=== PATIENT | female | born 1945 | race Caucasian/White ===

== ENCOUNTER 2019-10-13 19:51 | Emergency (ER) | payer MEDICARE, BC ==
--- NOTE | 2019-10-13 21:17 | EDM.PDOC ---
ED HPI GENERAL MEDICAL PROBLEM - General Chief Complaint: Gastrointestinal Problem Stated Complaint: DIARRHEA VOMITING COLD Time Seen by Provider: 10/13/19 21:09 - History of Present Illness INITIAL COMMENTS - FREE TEXT/NARRATIVE: 74-year-old female presents the emergency room with abdominal pain. This started earlier today and is progressively gotten worse the patient takes omeprazole daily and she missed a dose today. The patient is also on chemotherapy for breast cancer she is a little over a week after her first cycle of what is scheduled to be 4 rounds of chemotherapy. She has had some vomiting and some diarrhea. She is not aware of any fevers or chills. And to this point is not aware of any side effects from the chemotherapy Upper Abdomen Pain Score (Numeric/FACES): 10 - Related Data Allergies Allergy/AdvReac Type Severity Reaction Status Date / Time No Known Allergies Allergy Verified 10/13/19 20:07 Home Meds: Home Meds Calcium Carbonate/Vitamin D3 [Calcium 600 + Vit D 200] 1 each PO DAILY 10/13/19 [History] Glucosam/Chondr/Collagn/Hyalur [Glucosamine & Chondroitin Cap] 1 each PO DAILY 10/13/19 [History] Lisinopril [Zestril] 20 mg PO DAILY 10/13/19 [History] [place]-3 Fatty Acids [Maxepa] 2,000 mg PO DAILY 10/13/19 [History] Omeprazole 20 mg PO DAILY 10/13/19 [History] atorvaSTATin [Lipitor] 20 mg PO DAILY 10/13/19 [History] Past Medical History HEENT History: Reports: Cataract, Impaired Vision Cardiovascular History: Reports: High Cholesterol, Hypertension Respiratory History: Reports: None Gastrointestinal History: Reports: G[employer]ICIAN History: Reports: Musculoskeletal History: Reports: None Neurological History: Reports: None Psychiatric History: Reports: None Endocrine/Metabolic History: Reports: Other (See Below) Other Endocrine/Metabolic History: Pre-Diabetic Hematologic History: Reports: None Immunologic History: Reports: None Oncologic (Cancer) History: Reports: Breast Dermatologic History: Reports: None - Infectious Disease History Infectious Disease History: Reports: None - Past Surgical History HEENT Surgical History: Reports: Cataract Surgery GI Surgical History: Reports: Cholecystectomy Female Surgical History: Reports: Breast Biopsy Oncologic Surgical History: Reports: Biopsy of Breast, Lumpectomy, Other (See Below) Other Oncologic Surgeries/Procedures: No BP/Lab draws right arm. Power Port on left side confirmed by ID card. Social & Family History - Tobacco Use Smoking Status *Q: Never Smoker - Caffeine Use Caffeine Use: Reports: Coffee - Recreational Drug Use Recreational Drug Use: No ED ROS GENERAL - Review of Systems Review Of Systems: See Below Constitutional: Reports: No Symptoms. Denies: Fever, Chills HEENT: Reports: No Symptoms Respiratory: Reports: No Symptoms Cardiovascular: Reports: No Symptoms Endocrine: Reports: No Symptoms GI/Abdominal: Reports: Abdominal Pain. Denies: Black Stool, Bloody Stool, Constipation, Diarrhea Musculoskeletal: Reports: No Symptoms Skin: Reports: No Symptoms Psychiatric: Reports: No Symptoms Hematologic/Lymphatic: Reports: No Symptoms Immunologic: Reports: No Symptoms ED EXAM, GI/ABD - Physical Exam Exam: See Below Exam Limited By: No Limitations General Appearance: Alert, No Apparent Distress Head: Atraumatic, Normocephalic Neck: Normal Inspection, Supple, Non-Tender, Full Range of Motion. No: Lymphadenopathy (L), Lymphadenopathy (R) Respiratory/Chest: No Respiratory Distress, Lungs Clear, Normal Breath Sounds Cardiovascular: Regular Rate, Rhythm, No Edema, No Murmur GI/Abdominal Exam: Normal Bowel Sounds, Soft, Tender (Epigastric discomfort) Back Exam: Normal Inspection. No: CVA Tenderness (L), CVA Tenderness (R) Neurological: Alert, Oriented, Normal Cognition Skin Exam: Warm, Dry, Intact Lymphatic: No Adenopathy Course - Vital Signs Last Recorded V/S: Last Vital Signs Temp 37.1 C 10/13/19 20:03 Pulse 111 H 10/13/19 20:03 Resp 16 10/13/19 20:03 BP 127/74 10/13/19 20:03 Pulse Ox 96 10/13/19 20:03 - Orders/Labs/Meds Orders: Active Orders 24 hr Category Date Time Status Abdomen Pelvis w Cont [CT] Stat Exams 10/14/19 00:15 Taken CULTURE BLOOD [BC] Stat Lab 10/14/19 00:22 Received CULTURE BLOOD [BC] Stat Lab 10/14/19 00:32 Received CULTURE URINE [RM] Stat Lab 10/14/19 01:58 Received Lactated Ringers [Ringers, Lactated] 1,000 ml Med 10/14/19 01:30 Active IV ASDIRECTED Blood Culture x2 Reflex Set [OM.PC] Stat Oth 10/14/19 00:02 Ordered Medication Orders Lactated Ringer's (Ringers, Lactated) 1,000 mls @ 150 mls/hr IV ASDIRECTED FRANCISCO Last Admin: 10/14/19 02:03 Dose: 150 mls/hr Labs: Laboratory Tests 10/13/19 10/13/19 10/14/19 Range/Units 21:45 21:45 00:22 WBC 0.81 L* (3.98-10.04) K/mm3 RBC 4.88 (3.98-5.22) M/mm3 Hgb 14.1 (11.2-15.7) gm/dl Hct 40.8 (34.1-44.9) % MCV 83.6 (79.4-94.8) fl MCH 28.9 (25.6-32.2) pg MCHC 34.6 (32.2-35.5) g/dl RDW Std Deviation 37.5 (36.4-46.3) fL Plt Count 202 (182-369) K/mm3 MPV 10.4 (9.4-12.3) fl Neut % (Auto) Cancelled Lymph % (Auto) Cancelled [place] % (Auto) Cancelled Eos % (Auto) Cancelled Baso % (Auto) Cancelled Neut # (Auto) Cancelled Lymph # (Auto) Cancelled [place] # (Auto) Cancelled Eos # (Auto) Cancelled Baso # (Auto) Cancelled Neutrophils % (Manual) 26 L (40-60) % Band Neutrophils % 0 (0-10) % Lymphocytes % (Manual) 44 H (20-40) % Atypical Lymphs % 0 % Monocytes % (Manual) 30 H (2-10) % Eosinophils % (Manual) 0 L (0.7-5.8) % Basophils % (Manual) 0 L (0.1-1.2) Manual Slide Review Cancelled Toxic Granulation Occasional Platelet Estimate Adequate RBC Morph Comment Normal Sodium 138 (136-145) mEq/L Potassium 3.6 (3.5-5.1) mEq/L Chloride 101 (98-107) mEq/L Carbon Dioxide 25 (21-32) mEq/L Anion Gap 15.6 H (5-15) BUN 16 (7-18) mg/dL Creatinine 1.3 H (0.55-1.02) mg/dL Est Cr Clr Drug Dosing 33.78 mL/min Estimated GFR (MDRD) 40 (>60) mL/min BUN/Creatinine Ratio 12.3 L (14-18) Glucose 237 H (83-115) mg/dL Lactic Acid 2.9 H* (0.4-2.0) mmol/L Calcium 10.1 (8.5-10.1) mg/dL Total Bilirubin 3.7 H (0.2-1.0) mg/dL Direct Bilirubin (0.0-0.2) mg/dl AST 668 H (15-37) U/L ALT 842 H (14-59) U/L Alkaline Phosphatase 326 H (46-116) U/L Total Protein 7.2 (6.4-8.2) g/dl Albumin 3.2 L (3.4-5.0) g/dl Globulin 4.0 gm/dL Albumin/Globulin Ratio 0.8 L (1-2) Lipase 88332 H (73-393) U/L Urine Color (Yellow) Urine Appearance (Clear) Urine pH (5.0-8.0) Ur Specific [place] (1.005-1.030) Urine Protein (Negative) Urine Glucose (UA) (Negative) Urine Ketones (Negative) Urine Occult Blood (Negative) Urine Nitrite (Negative) Urine Bilirubin (Negative) Urine Urobilinogen (0.2-1.0) Ur Leukocyte Esterase (Negative) Urine RBC (0-5) /hpf Urine WBC (0-5) /hpf Ur Squamous Epith Cells (0-5) /hpf Urine Bacteria (FEW) /hpf Urine Mucus (FEW) /hpf 10/14/19 10/14/19 Range/Units 00:32 00:44 WBC (3.98-10.04) K/mm3 RBC (3.98-5.22) M/mm3 Hgb (11.2-15.7) gm/dl Hct (34.1-44.9) % MCV (79.4-94.8) fl MCH (25.6-32.2) pg MCHC (32.2-35.5) g/dl RDW Std Deviation (36.4-46.3) fL Plt Count (182-369) K/mm3 MPV (9.4-12.3) fl Neut % (Auto) Lymph % (Auto) [place] % (Auto) Eos % (Auto) Baso % (Auto) Neut # (Auto) Lymph # (Auto) [place] # (Auto) Eos # (Auto) Baso # (Auto) Neutrophils % (Manual) (40-60) % Band Neutrophils % (0-10) % Lymphocytes % (Manual) (20-40) % Atypical Lymphs % % Monocytes % (Manual) (2-10) % Eosinophils % (Manual) (0.7-5.8) % Basophils % (Manual) (0.1-1.2) Manual Slide Review Toxic Granulation Platelet Estimate RBC Morph Comment Sodium (136-145) mEq/L Potassium (3.5-5.1) mEq/L Chloride (98-107) mEq/L Carbon Dioxide (21-32) mEq/L Anion Gap (5-15) BUN (7-18) mg/dL Creatinine (0.55-1.02) mg/dL Est Cr Clr Drug Dosing mL/min Estimated GFR (MDRD) (>60) mL/min BUN/Creatinine Ratio (14-18) Glucose (83-115) mg/dL Lactic Acid (0.4-2.0) mmol/L Calcium (8.5-10.1) mg/dL Total Bilirubin (0.2-1.0) mg/dL Direct Bilirubin 2.90 H (0.0-0.2) mg/dl AST (15-37) U/L ALT (14-59) U/L Alkaline Phosphatase (46-116) U/L Total Protein (6.4-8.2) g/dl Albumin (3.4-5.0) g/dl Globulin gm/dL Albumin/Globulin Ratio (1-2) Lipase (73-393) U/L Urine Color Yellow (Yellow) Urine Appearance Clear (Clear) Urine pH 7.0 (5.0-8.0) Ur Specific [place] 1.020 (1.005-1.030) Urine Protein Trace H (Negative) Urine Glucose (UA) Negative (Negative) Urine Ketones Negative (Negative) Urine Occult Blood Trace-intact H (Negative) Urine Nitrite Negative (Negative) Urine Bilirubin 1+ H (Negative) Urine Urobilinogen 1.0 (0.2-1.0) Ur Leukocyte Esterase Negative (Negative) Urine RBC 0-5 (0-5) /hpf Urine WBC 0-5 (0-5) /hpf Ur Squamous Epith Cells 0-5 (0-5) /hpf Urine Bacteria Few (FEW) /hpf Urine Mucus Rare (FEW) /hpf Meds: Medications Generic Name Dose Route Start Last Admin Trade Name Umairq PRN Reason Stop Dose Admin Lactated Ringer's 1,000 mls @ 150 mls/hr 10/14/19 01:30 10/14/19 02:03 Ringers, Lactated IV 150 mls/hr ASDIRECTED FRANCISCO Administration Discontinued Medications Generic Name Dose Route Start Last Admin Trade Name Freq PRN Reason Stop Dose Admin Al Hydroxide/Mg Hydroxide 30 0 ml 10/13/19 21:18 10/13/19 21:37 ml/ Lidocaine HCl 15 ml PO 10/13/19 21:19 45 ml ONETIME ONE Administration Lactated Ringer's 1,000 mls @ 999 mls/hr 10/13/19 21:18 10/13/19 21:43 Ringers, Lactated IV 10/13/19 22:18 999 mls/hr .BOLUS ONE Administration Lactated Ringer's 1,000 mls @ 1,000 mls/hr 10/13/19 22:57 10/13/19 23:08 Ringers, Lactated IV 10/13/19 23:56 1,000 mls/hr ONETIME ONE Administration Cefepime HCl 2 gm/ Premix 50 mls @ 100 mls/hr 10/14/19 01:18 10/14/19 01:40 IV 10/14/19 01:47 100 mls/hr ONETIME ONE Administration Pantoprazole Sodium 40 mg 10/13/19 22:29 10/13/19 22:43 Protonix Iv IVPUSH 10/13/19 22:30 40 mg ONETIME ONE Administration Sucralfate 1 gm 10/13/19 22:29 10/13/19 22:43 Carafate PO 10/13/19 22:30 1 gm ONETIME ONE Administration - Re-Assessments/Exams Free Text/Narrative Re-Assessment/Exam: 10/13/19 22:[address] Solorzano, her oncologist reviewed her CBC and her neutropenia she recommends not doing anything with it at this point as the patient is stable and otherwise doing well. The patient should follow-up with Dr. Solorzano over the phone tomorrow. 10/14/19 00:14 Doing much better from an abdominal discomfort standpoint however she is got transaminase elevation and just saw that her lipase is 48,000 and her bilirubin is elevated we will check a direct bili check an abdominal CT. Blood culture lactic acid have been ordered as I have not been able to get her pulse to significantly come down with fluids her blood pressure is good. 10/14/19 01:25 At this point the patient's lactic acid came back at 2.9 blood cultures have been obtained urine culture obtained I discussed the patient's case with Dr. Bertrand hospitalist at [facility] who is kind enough to accept the patient will send the patient as soon as the CT is done I will call him if anything abnormal comes back on the report. The patient will be started on cefepime. We will continue fluids 10/14/19 02:[address] report with Dr. Bertrand shortly after the patient left the department. Departure - Departure Time of Disposition: 01:29 Disposition: DC/Tfer to [facility] Clinical Impression: Pancreatitis, Neutropenia - Discharge Information Referrals: PCP,Not In Area [Primary Care Provider] - Forms: ED Department Discharge Sepsis Event Note - Evaluation Sepsis Screening Result: No Definite Risk - Focused Exam Vital Signs: Vital Signs Temp Pulse Resp BP Pulse Ox 10/13/19 20:03 37.1 C 111 H 16 127/74 96 Date Exam was Performed: 10/14/19 Time Exam was Performed: 02:50 - My Orders Last 24 Hours: My Active Orders 10/14/19 00:02 Blood Culture x2 Reflex Set [OM.PC] Stat 10/14/19 00:15 Abdomen Pelvis w Cont [CT] Stat 10/14/19 00:22 CULTURE BLOOD [BC] Stat 10/14/19 00:32 CULTURE BLOOD [BC] Stat 10/14/19 01:30 Lactated Ringers [Ringers, Lactated] 1,000 ml IV ASDIRECTED 10/14/19 01:58 CULTURE URINE [RM] Stat - Assessment/Plan Last 24 Hours: My Active Orders 10/14/19 00:02 Blood Culture x2 Reflex Set [OM.PC] Stat 10/14/19 00:15 Abdomen Pelvis w Cont [CT] Stat 10/14/19 00:22 CULTURE BLOOD [BC] Stat 10/14/19 00:32 CULTURE BLOOD [BC] Stat 10/14/19 01:30 Lactated Ringers [Ringers, Lactated] 1,000 ml IV ASDIRECTED 10/14/19 01:58 CULTURE URINE [RM] Stat
[2019-10-13] MEDS ORDERED: Lactated Ringers 1,000 ML IV ONE ×2 (21:18→22:57)
[2019-10-13] MEDS ORDERED: Alum Hydrox/Mag Hydrox/Simeth 30 ML, Lidocaine 2% 15 ML PO ONE ×2 (21:18)
[2019-10-13] MEDS ORDERED: Pantoprazole 40 MG Vial IVPUSH ONE (22:29)
[2019-10-13] MEDS ORDERED: Sucralfate Suspension 1 GM/10 ML Cup PO ONE (22:29)
[2019-10-14] MEDS ORDERED: Cefepime 2 GM in Premix Bag 1 BAG IV ONE (01:18)
[2019-10-14] MEDS ORDERED: Lactated Ringers 1,000 ML IV SCH (01:30)
--- NOTE | 2019-10-14 07:41 | CT ---
CT abdomen and pelvis Technique: Multiple axial sections were obtained from above the dome of the diaphragm inferiorly through the pubic symphysis. Intravenous and oral contrast has been given. Delayed images were also obtained through the abdomen and pelvis. Comparison: No prior abdominal imaging. Findings: Intrahepatic and extrahepatic biliary duct dilatation is noted. Common bile duct measures up to 1.4 cm. There is filling defects showing slight calcification within the distal CBD which is felt compatible with distal CBD stone. This finding measures approximately 8.8 mm. Diffuse bowel wall thickening is seen within the adjacent duodenal loop compatible with duodenitis. Previous cholecystectomy is noted. Visualized lung bases show nothing acute. Liver contains no focal parenchymal abnormality. Spleen appears within normal limits. Adrenal glands show no nodule. No discrete intraparenchymal abnormality is appreciated within the pancreas. Kidneys show symmetric contrast enhancement. Scattered small low density lesions are noted within both kidneys which are most likely due to small cysts. Aorta shows no aneurysm. No retroperitoneal adenopathy or mesenteric abnormalities are seen. No pelvic mass or adenopathy is seen. Mild diverticulosis is noted within the sigmoid colon. Diffuse bowel wall thickening appears to be present within the colon. Findings are suspicious for diffuse colitis. No free fluid or other inflammatory change is appreciated. Appendix is felt to be visualized and is normal in size. Degenerating fibroid is noted within the uterus measuring around 3.4 cm. Bone window settings show scattered degenerative change within the spine. Impression: 1. Intrahepatic and extrahepatic biliary duct dilatation with evidence of prior cholecystectomy. There appears to be a stone within the distal CBD. 2. Diffuse bowel wall thickening within the duodenal loop compatible with fairly severe duodenitis. 3. Diffuse bowel wall thickening appears to be present within the colon raising the possibility of diffuse colitis. 4. Other findings as noted above believed to be incidental. Diagnostic code #3 This report was dictated in [place] Standard Time I agree with preliminary report from [facility], finalized on 10/14/19, 3:15 AM Central Time
== END 2019-10-14 02:30 ==
LOC: JD.ED 19:51
DX: K85.90 Acute pancreatitis without necrosis or infection, unspecified (principal); D70.9 Neutropenia, unspecified; I10 Essential (primary) hypertension; E78.00 Pure hypercholesterolemia, unspecified; K21.9 Gastro-esophageal reflux disease without esophagitis; Z90.49 Acquired absence of other specified parts of digestive tract; Z79.899 Other long term (current) drug therapy
CPT/HCPCS: 36415; 74177; 80053; 81001; 82248; 83605; 83690; 85007; 85027; 87040; 87086; 96361; 96365; 96375; 99285; A9270; C9113; J0692; J7120